=== PATIENT | female | born 1945 | race Caucasian/White ===

== ENCOUNTER 2024-11-19 11:50 | Emergency (ER) | payer MEDICARE ==
[2024-11-19 12:47] LABS: Glucose, Urine (Dipstick) Negative (Negative); Leukocyte Negative (Negative); Protein, Urine (Dipstick) Negative (Neg-Trace); Specific Gravity, Urine 1.010 (1.005-1.030)
[2024-11-19 12:52] LABS: CAUTI Indications for Culture Pelvic or flank pain; WBC/HPF 0-3 HPF (0-3)
[2024-11-19 12:53] LABS: Urine Culture Reflex No No
== END 2024-11-19 13:56 | disposition home or self-care (01) ==
LOC: NAV ERS 11:50
DX: M54.50 Low back pain, unspecified (principal)
CPT/HCPCS: 74176; 81001